=== PATIENT | male | born 1965 ===

== ENCOUNTER 2020-12-18 09:32 | Outpatient (CLI) | payer OTHER, SELFPAY ==
--- NOTE | 2020-12-18 09:20 | DI.RAD_ITS ---
EXAM: XR HIP LT 1V CLINICAL HISTORY: ARTHRITIS, M13.80. TECHNIQUE: 2D digital imaging was performed. Single AP view left pelvis was performed. COMPARISON: No exams were available for comparison FINDINGS: BONES: No acute fracture is present. No bony destructive lesion is seen. Bones are normally mineraliz ed. The femoral head intact. Degenerative disc changes are seen at the lower lumbar spine. JOINTS: No dislocation present. Minimal spurring at the superior acetabular rim and mild sclerosis. Minimal spurring at the inferior SI joint. SOFT TISSUE: Normal. No calcifications. IMPRESSION: Minimal degenerative changes of the superior acetabulum. DATA REPOSITORY: RADIATION DOSE DELIVERED:
== END 2020-12-18 09:52 ==
PROVIDERS: Visit Provider Orthopaedic Surgery
DX: M25.552 Pain in left hip; M13.852 Other specified arthritis, left hip
CPT/HCPCS: 73501